=== PATIENT | male | born 1940 ===

== ENCOUNTER 2017-08-20 06:56 | Day surgery (SDC) | payer OTHER | END 2017-08-20 12:20 | disposition home or self-care (01) | LOC: AMB-ENDOS 06:56 | DX: C20 Malignant neoplasm of rectum (principal) ==

== ENCOUNTER 2017-09-24 16:52 | Inpatient (IN) | payer OTHER ==
[~2017-09-24] VITALS: Ht 177.8 cm; Wt 63.5 kg
[2017-09-26] MEDS ORDERED: SYNTHROID50 MCG (11:00)
[2017-09-26] MEDS ORDERED: ZOCOR40 MG (11:00)
[2017-09-26] MEDS ORDERED: LOTREL 5-20 MG1 CAP (11:01)
[2017-09-26] MEDS ORDERED: ATACAND HCT 321 EACH PO (11:01)
== END 2017-10-17 17:40 | disposition home or self-care (01) | DRG 330 ==
LOC: SURH 09-26 09:15 → SURG 10-03 09:42 → O/R 10-03 09:42 → SURG 10-03 21:14 → SURH 10-04 12:48
PROVIDERS: Surgery
PROC: 0DTP4ZZ Resection of Rectum, Percutaneous Endoscopic Approach (ICD-10-PCS; 2017-10-03)
PROC: 07TC4ZZ Resection of Pelvis Lymphatic, Percutaneous Endoscopic Approach (ICD-10-PCS; 2017-10-03)
PROC: 0D1B4Z4 Bypass Ileum to Cutaneous, Percutaneous Endoscopic Approach (ICD-10-PCS; 2017-10-03)
PROC: 0DJD8ZZ Inspection of Lower Intestinal Tract, Via Natural or Artificial Opening Endoscopic (ICD-10-PCS; 2017-10-03)
PROC: 0DTN4ZZ Resection of Sigmoid Colon, Percutaneous Endoscopic Approach (ICD-10-PCS; principal; 2017-10-03 10:00)
PROC: 02HV33Z Insertion of Infusion Device into Superior Vena Cava, Percutaneous Approach (ICD-10-PCS; 2017-10-09)
PROC: 3E0436Z Introduction of Nutritional Substance into Central Vein, Percutaneous Approach (ICD-10-PCS; 2017-10-09)
PROC: BW25Y0Z Computerized Tomography (CT Scan) of Chest, Abdomen and Pelvis using Other Contrast, Unenhanced and Enhanced (ICD-10-PCS; 2017-10-09)
DX: C20 Malignant neoplasm of rectum (principal); K56.0 Paralytic ileus; K91.89 Other postprocedural complications and disorders of digestive system; J90 Pleural effusion, not elsewhere classified; J95.89 Other postprocedural complications and disorders of respiratory system, not elsewhere classified; J98.11 Atelectasis; R59.0 Localized enlarged lymph nodes; R06.6 Hiccough

== ENCOUNTER 2017-11-01 10:02 | Inpatient (IN) | payer OTHER ==
[~2017-11-01 10:02] MED LIST: ATACAND HCT 321 EACH PO; LOTREL 5-20 MG1 CAP; SYNTHROID50 MCG; ZOCOR40 MG
[2017-11-07] MEDS ORDERED: TRAM1TAB98 PO (16:35)
[2017-11-07] MEDS ORDERED: CARAFATE1 GM PO (16:35)
[2017-11-07] MEDS ORDERED: PANTOPRAZOLE SO40 MG PO (16:35)
[2017-11-07] MEDS ORDERED: APETIGEN L790 MG/15 PO (16:35)
[2017-11-07] MEDS ORDERED: INTEGRA F CAPS1 EACH PO (16:35)
[2017-11-07] MEDS ORDERED: Intestinex CAP PO (16:36)
[2017-11-07] MEDS ORDERED: LEVAQUIN750 MG PO (16:43)
== END 2017-11-07 19:06 | disposition home or self-care (01) | DRG 699 ==
LOC: SURH 10:02 → SURG 10:11 → SURH 10:30
PROC: 3E0436Z Introduction of Nutritional Substance into Central Vein, Percutaneous Approach (ICD-10-PCS; principal; 2017-11-02)
PROC: 02HV33Z Insertion of Infusion Device into Superior Vena Cava, Percutaneous Approach (ICD-10-PCS; 2017-11-02)
DX: N99.0 Postprocedural (acute) (chronic) kidney failure (principal); N17.8 Other acute kidney failure; E87.1 Hypo-osmolality and hyponatremia; E46 Unspecified protein-calorie malnutrition; K91.31 Postprocedural partial intestinal obstruction; C20 Malignant neoplasm of rectum; B37.49 Other urogenital candidiasis; E86.0 Dehydration; E03.8 Other specified hypothyroidism; Z90.49 Acquired absence of other specified parts of digestive tract; Z93.3 Colostomy status; R06.6 Hiccough; B95.2 Enterococcus as the cause of diseases classified elsewhere
CPT/HCPCS: 240

== ENCOUNTER 2017-11-19 16:19 | Inpatient (IN) | payer OTHER ==
[~2017-11-19] VITALS: Ht 177.8 cm; Wt 54.4 kg
[~2017-11-19 16:19] MED LIST changes: +APETIGEN L790 MG/15 PO; +CARAFATE1 GM PO; +INTEGRA F CAPS1 EACH PO; +Intestinex CAP PO; +LEVAQUIN750 MG PO; +PANTOPRAZOLE SO40 MG PO; +TRAM1TAB98 PO
[2017-12-03] MEDS ORDERED: TRAM1TAB98 PO (15:24)
[2017-12-03] MEDS ORDERED: AMOX1TAB5 PO (15:24)
== END 2017-12-03 15:37 | disposition home or self-care (01) | DRG 330 ==
LOC: ER 16:19 → MEDJ 22:40
PROVIDERS: Surgery
PROC: BW25Y0Z Computerized Tomography (CT Scan) of Chest, Abdomen and Pelvis using Other Contrast, Unenhanced and Enhanced (ICD-10-PCS; 2017-11-19)
PROC: 0DJD8ZZ Inspection of Lower Intestinal Tract, Via Natural or Artificial Opening Endoscopic (ICD-10-PCS; 2017-11-21)
PROC: 0DJD8ZZ Inspection of Lower Intestinal Tract, Via Natural or Artificial Opening Endoscopic (ICD-10-PCS; 2017-11-21)
PROC: 3E0336Z Introduction of Nutritional Substance into Peripheral Vein, Percutaneous Approach (ICD-10-PCS; 2017-11-22)
PROC: 02HV33Z Insertion of Infusion Device into Superior Vena Cava, Percutaneous Approach (ICD-10-PCS; 2017-11-25)
PROC: 0DQB4ZZ Repair Ileum, Percutaneous Endoscopic Approach (ICD-10-PCS; principal; 2017-11-28 06:15)
PROC: 30233N1 Transfusion of Nonautologous Red Blood Cells into Peripheral Vein, Percutaneous Approach (ICD-10-PCS; 2017-12-02)
DX: K91.31 Postprocedural partial intestinal obstruction (principal); E87.1 Hypo-osmolality and hyponatremia; N17.8 Other acute kidney failure; C20 Malignant neoplasm of rectum; Y83.3 Surgical operation with formation of external stoma as the cause of abnormal reaction of the patient, or of later complication, without mention of misadventure at the time of the procedure; Y92.098 Other place in other non-institutional residence as the place of occurrence of the external cause; E86.0 Dehydration; E03.8 Other specified hypothyroidism; Z93.2 Ileostomy status; D64.89 Other specified anemias; R73.09 Other abnormal glucose

== ENCOUNTER 2018-03-31 05:58 | Day surgery (SDC) | payer OTHER ==
[~2018-03-31 05:58] MED LIST changes: +AMOX1TAB5 PO; +SYNTH PO
[2018-03-31] MEDS ORDERED: PERCOCET 5-3251 EACH PO (10:55)
== END 2018-03-31 13:10 | disposition home or self-care (01) ==
LOC: CIR.AMB 05:58
DX: C20 Malignant neoplasm of rectum (principal)
CPT/HCPCS: 36561; C1751